=== PATIENT | female | born 1970 | race Caucasian/White ===

== ENCOUNTER 2016-07-02 13:50 | Emergency (ER) | payer OTHER ==
[2016-07-02] MEDS ORDERED: HYDROmorphone 1 MG/ML Syringe IVPUSH ONE (14:01)
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
--- NOTE | 2016-07-02 14:55 | CR ---
EXAMINATION: Lumbar spine HISTORY: Pain COMPARISON: None TECHNIQUE: AP and lateral views FINDINGS: The lumbar spinal alignment is normal. The vertebral body heights and disc spaces appear w ell-maintained. There is no fracture or acute osseous abnormality. Bone mineralization is normal. Th e SI joints are symmetric. Mild marginal osteophytes noted. IMPRESSION: No acute osseous abnormality identified.
--- NOTE | 2016-07-02 15:06 | CR ---
EXAMINATION: Pelvis HISTORY: Pain COMPARISON: None TECHNIQUE: AP view FINDINGS: There is no acute osseous abnormality, dislocation, or fracture. Bone mineralization and j oint spaces appear normal. The SI joints are symmetric. The hip joints are preserved. The iliopectin eal lines are intact. IMPRESSION: No acute osseous abnormality.
--- NOTE | 2016-07-02 15:07 | CR ---
EXAMINATION: Right knee HISTORY: Pain COMPARISON: None TECHNIQUE: 3 views FINDINGS/IMPRESSION: There is no acute osseous abnormality, dislocation, or fracture identified. Bon e mineralization and joint spaces appear normal. No soft tissue swelling or joint effusion.
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
[2016-07-02 19:58] VITALS: BP 129/85
== END 2016-07-02 16:40 | disposition home or self-care (01) ==
LOC: MW.ED 13:50
DX: S39.012A Strain of muscle, fascia and tendon of lower back, initial encounter (principal); T14.8 Other injury of unspecified body region; F17.210 Nicotine dependence, cigarettes, uncomplicated; Z98.890 Other specified postprocedural states; Z98.51 Tubal ligation status; V49.49XA Driver injured in collision with other motor vehicles in traffic accident, initial encounter
CPT/HCPCS: 71010; 72100; 72170; 73562; 96374; 99284; G0390; J1170; 99282

== ENCOUNTER 2016-10-30 12:55 | Emergency (ER) | payer OTHER ==
[2016-10-30 13:09] VITALS: BP 133/81
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
== END 2016-10-30 13:24 | disposition home or self-care (01) ==
LOC: MW.ED 12:55
DX: M54.5 Low back pain (principal); F31.9 Bipolar disorder, unspecified; F90.9 Attention-deficit hyperactivity disorder, unspecified type; F17.210 Nicotine dependence, cigarettes, uncomplicated; Z98.890 Other specified postprocedural states; Z98.51 Tubal ligation status
CPT/HCPCS: 99283

== ENCOUNTER 2017-04-09 20:56 | Emergency (ER) | payer OTHER ==
[2017-04-09] MEDS ORDERED: Sodium Chloride 0.9% 1,000 ML IV ONE (21:20)
[2017-04-09] MEDS ORDERED: Ondansetron 4 MG/2 ML SDV IVPUSH ONE (21:20)
[2017-04-09] MEDS ORDERED: Morphine 2 MG/ML Syringe IVPUSH ONE (21:20)
[2017-04-09] MEDS ORDERED: Pantoprazole 40 MG Vial IVPUSH ONE (21:21)
[2017-04-09] MEDS ORDERED: Sodium Chloride 0.9% 2.5 ML Syringe FLUSH PRN (21:21)
[2017-04-09] MEDS ORDERED: Sodium Chloride 0.9% 10 ML Syringe FLUSH PRN (21:21)
--- NOTE | 2017-04-09 21:24 | EDM.PDOC ---
ED HPI GENERAL MEDICAL PROBLEM - General Chief Complaint: Abdominal Pain Stated Complaint: PT HAS STOMACH PAINS Time Seen by Provider: 04/09/17 21:13 - History of Present Illness INITIAL COMMENTS - FREE TEXT/NARRATIVE: HISTORY AND PHYSICAL: History of present illness: The patient is a 46-year-old female who presents with right upper abdominal pain that started approximately 2-1/2 hours ago after eating a salad with gorgonzola dressing. The patient says that she has had similar pain in the past in 2014 and 2015 and was evaluated in [place] with some GI studies and an ultrasound of her gallbladder. She was supposed have an endoscopy and her there evaluation of her gallbladder but a family situation mandated that she leave [place] and go to [place]. The pain went away and she did not further get the evaluation. She says she's been doing well and has not had the pain until tonight. She says she is nauseated but has not had vomiting and she has had several loose stools today which are dark in color but not black or bloody. The patient tried meloxicam at home as well as [id number] antacids and still has the discomfort. She has no flank pain no urinary complaints and says that she "cannot get ". Patient says she has not had any recent food intolerance. Patient has not had fevers chills or upper respiratory symptoms and has no chest pain or shortness of breath. The patient tells me that she did eat this food that set off her pain 2-1/2 hours ago but she also ate some crackers in the interim before coming here. Review of systems: As per history of present illness and below otherwise all systems reviewed and negative. Past medical history: As per history of present illness and as reviewed below otherwise noncontributory. Surgical history: As per history of present illness and as reviewed below otherwise noncontributory. Social history: No reported history of drug or alcohol abuse. Family history: As per history of present illness and as reviewed below otherwise noncontributory. Physical exam: Gen.: Well-developed well-nourished female who is nontoxic and vital signs are noted by me HEENT: Atraumatic, normocephalic, pupils reactive, negative for conjunctival pallor or scleral icterus, mucous membranes moist, throat clear, neck supple, nontender, trachea midline. Lungs: Clear to auscultation, breath sounds equal bilaterally, chest nontender. Heart: S1S2, regular, negative for clicks, rubs, or JVD. Abdomen: Soft, nondistended, bowel sounds are slightly hypoactive, there is tenderness in the right upper quadrant without rebound or guarding and the remainder the abdomen is nontender. Negative for masses or hepatosplenomegaly. Pelvis: Stable nontender. Genitourinary: Deferred. Rectal: Normal tone and no masses or lesions are appreciated, light brown stool is in the vault which is Hemoccult negative Extremities: Atraumatic, negative for cords or calf pain. Neurovascular unremarkable. Neuro: Awake, alert, oriented. Cranial nerves II through XII unremarkable. Cerebellum unremarkable. Motor and sensory unremarkable throughout. Exam nonfocal. Diagnostics: CBC CMP amylase lipase UA CT scan of the abdomen and pelvis I discussed with the patient as she has eaten very recently that a gallbladder ultrasound would not yield much results so we would perform a CT Therapeutics: IV IV fluids and Protonix morphine Zofran I discussed with the patient and family at bedside all testing results including a negative CT scan for gallbladder or liver disease and the fecal loading of the proximal colon. I will recommend [id number] MiraLAX to help alleviate these symptoms and I will also give her some Bentyl at home for any cramping. I've also advised follow-up with one of our clinic providers as the symptoms may need more evaluation and testing for her gallbladder if they recur. Impression: Right upper abdominal pain acute on chronic, fecal loading of proximal colon Definitive disposition and diagnosis as appropriate pending reevaluation and review of above. RUQ Abdomen Pain Score (Numeric/FACES): 7 - Related Data Allergies Allergy/AdvReac Type Severity Reaction Status Date / Time No Known Allergies Allergy Verified 04/09/17 21:04 Home Meds: Home Meds Meloxicam 1 tab PO ASDIRECTED PRN 10/30/16 [History] Methylphenidate HCl 20 mg PO BID 10/30/16 [History] lamoTRIgine [Lamotrigine] 200 mg PO BEDTIME 10/30/16 [History] Albuterol [Ventolin HFA] 1 puff .XX ACLUNCH PRN 04/09/17 [History] Propranolol HCl 20 mg PO TID PRN 04/09/17 [History] rOPINIRole [Requip] 0.5 mg PO BEDTIME 04/09/17 [History] Past Medical History - Past Health History Medical/Surgical History: Denies Medical/Surgical History Musculoskeletal History: Reports: Other (See Below) Other Musculoskeletal History: knee pain Psychiatric History: Reports: ADHD, Bipolar, PTSD - Infectious Disease History Infectious Disease History: Reports: Chicken Pox - Past Surgical History HEENT Surgical History: Reports: Tonsillectomy Female Surgical History: Reports: Tubal Ligation Social & Family History - Family History Family Medical History: Noncontributory - Tobacco Use Smoking Status *Q: Current Every Day Smoker Years of Tobacco use: 15 Packs/Tins Daily: 0.5 - Caffeine Use Caffeine Use: Reports: Coffee - Recreational Drug Use Recreational Drug Use: No ED ROS GENERAL - Review of Systems Review Of Systems: ROS reveals no pertinent complaints other than HPI. ED EXAM, GENERAL - Physical Exam Exam: See Below (See dictation) Course - Vital Signs Last Recorded V/S: Last Vital Signs Temp 36.3 C 04/09/17 20:56 Pulse 70 04/09/17 20:56 Resp 18 04/09/17 20:56 BP 134/87 04/09/17 20:56 Pulse Ox 100 04/09/17 20:56 - Orders/Labs/Meds Orders: Active Orders 24 hr Category Date Time Status Abdomen Pelvis w Cont [CT] Stat Exams 04/09/17 21:20 Taken Sodium Chloride 0.9% [Saline Flush] Med 04/09/17 21:21 Active 10 ml FLUSH ASDIRECTED PRN Sodium Chloride 0.9% [Saline Flush] Med 04/09/17 21:21 Active 2.5 ml FLUSH ASDIRECTED PRN Saline Lock Insert [OM.PC] Stat Oth 04/09/17 21:20 Ordered Medication Orders Sodium Chloride (Saline Flush) 10 ml FLUSH ASDIRECTED PRN PRN Reason: Keep Vein Open Last Admin: 04/09/17 21:30 Dose: 10 ml Sodium Chloride (Saline Flush) 2.5 ml FLUSH ASDIRECTED PRN PRN Reason: Keep Vein Open Labs: Laboratory Tests 04/09/17 04/09/17 04/09/17 Range/Units 21:16 21:16 21:16 WBC 12.65 H (4.0-11.0) K/uL RBC 4.70 (4.30-5.90) M/uL Hgb 14.6 (12.0-16.0) g/dL Hct 41.8 (36.0-46.0) % MCV 88.9 (80.0-98.0) fL MCH 31.1 (27.0-32.0) pg MCHC 34.9 (31.0-37.0) g/dL RDW Std Deviation 46.2 (28.0-62.0) fl RDW Coeff of Diana 14 (11.0-15.0) % Plt Count 305 (150-400) K/uL MPV 10.20 (7.40-12.00) fL Neut % (Auto) 55.1 (48.0-80.0) % Lymph % (Auto) 38.1 (16.0-40.0) % Hodgeman % (Auto) 5.4 (0.0-15.0) % Eos % (Auto) 1.0 (0.0-7.0) % Baso % (Auto) 0.4 (0.0-1.5) % Neut # (Auto) 7.0 H (1.4-5.7) K/uL Lymph # (Auto) 4.8 H (0.6-2.4) K/uL Hodgeman # (Auto) 0.7 (0.0-0.8) K/uL Eos # (Auto) 0.1 (0.0-0.7) K/uL Baso # (Auto) 0.1 (0.0-0.1) K/uL Nucleated RBC % 0.0 /100WBC Nucleated RBCs # 0 K/uL Sodium 139 (136-146) mmol/L Potassium 3.8 (3.5-5.1) mmol/L Chloride 103 (98-110) mmol/L Carbon Dioxide 26 (21-31) mmol/L BUN 16 (6.0-23.0) mg/dL Creatinine 0.8 (0.6-1.5) mg/dL Est Cr Clr Drug Dosing 71.91 mL/min Estimated GFR (MDRD) > 60.0 ml/min Glucose 66 (60-110) mg/dL Calcium 10.9 H (8.8-10.8) mg/dL Total Bilirubin 0.3 (0.1-1.5) mg/dL AST 16 (5-40) IU/L ALT 19 (8-54) IU/L Alkaline Phosphatase 68 (40-150) Total Protein 7.2 (6.0-8.0) g/dL Albumin 4.3 (3.5-5.0) g/dL Globulin 2.9 (2.0-3.5) g/dL Albumin/Globulin Ratio 1.5 (1.3-2.8) Amylase 47 (10-90) U/L Lipase 68 (7-80) U/L Urine Color Urine Appearance Urine pH (5.0-8.0) Ur Specific [place] (1.001-1.035) Urine Protein (NEGATIVE) mg/dL Urine Glucose (UA) (NEGATIVE) mg/dL Urine Ketones (NEGATIVE) mg/dL Urine Occult Blood (NEGATIVE) Urine Nitrite (NEGATIVE) Urine Bilirubin (NEGATIVE) Urine Urobilinogen (<2.0) EU/dL Ur Leukocyte Esterase (NEGATIVE) Urine RBC (0-2/HPF) Urine WBC (0-5/HPF) Ur Epithelial Cells (NONE-FEW) Urine Bacteria (NEGATIVE) 04/09/17 Range/Units 21:20 WBC (4.0-11.0) K/uL RBC (4.30-5.90) M/uL Hgb (12.0-16.0) g/dL Hct (36.0-46.0) % MCV (80.0-98.0) fL MCH (27.0-32.0) pg MCHC (31.0-37.0) g/dL RDW Std Deviation (28.0-62.0) fl RDW Coeff of Diana (11.0-15.0) % Plt Count (150-400) K/uL MPV (7.40-12.00) fL Neut % (Auto) (48.0-80.0) % Lymph % (Auto) (16.0-40.0) % Hodgeman % (Auto) (0.0-15.0) % Eos % (Auto) (0.0-7.0) % Baso % (Auto) (0.0-1.5) % Neut # (Auto) (1.4-5.7) K/uL Lymph # (Auto) (0.6-2.4) K/uL Hodgeman # (Auto) (0.0-0.8) K/uL Eos # (Auto) (0.0-0.7) K/uL Baso # (Auto) (0.0-0.1) K/uL Nucleated RBC % /100WBC Nucleated RBCs # K/uL Sodium (136-146) mmol/L Potassium (3.5-5.1) mmol/L Chloride (98-110) mmol/L Carbon Dioxide (21-31) mmol/L BUN (6.0-23.0) mg/dL Creatinine (0.6-1.5) mg/dL Est Cr Clr Drug Dosing mL/min Estimated GFR (MDRD) ml/min Glucose (60-110) mg/dL Calcium (8.8-10.8) mg/dL Total Bilirubin (0.1-1.5) mg/dL AST (5-40) IU/L ALT (8-54) IU/L Alkaline Phosphatase (40-150) Total Protein (6.0-8.0) g/dL Albumin (3.5-5.0) g/dL Globulin (2.0-3.5) g/dL Albumin/Globulin Ratio (1.3-2.8) Amylase (10-90) U/L Lipase (7-80) U/L Urine Color YELLOW Urine Appearance CLEAR Urine pH 6.5 (5.0-8.0) Ur Specific [place] 1.010 (1.001-1.035) Urine Protein NEGATIVE (NEGATIVE) mg/dL Urine Glucose (UA) NEGATIVE (NEGATIVE) mg/dL Urine Ketones NEGATIVE (NEGATIVE) mg/dL Urine Occult Blood SMALL H (NEGATIVE) Urine Nitrite NEGATIVE (NEGATIVE) Urine Bilirubin NEGATIVE (NEGATIVE) Urine Urobilinogen 0.2 (<2.0) EU/dL Ur Leukocyte Esterase NEGATIVE (NEGATIVE) Urine RBC 2-4 (0-2/HPF) Urine WBC 0-1 (0-5/HPF) Ur Epithelial Cells OCCASIONAL (NONE-FEW) Urine Bacteria FEW (NEGATIVE) Meds: Medications Generic Name Dose Route Start Last Admin Trade Name Freq PRN Reason Stop Dose Admin Sodium Chloride 10 ml 04/09/17 21:21 04/09/17 21:30 Saline Flush FLUSH 10 ml ASDIRECTED PRN Administration Keep Vein Open Sodium Chloride 2.5 ml 04/09/17 21:21 Saline Flush FLUSH ASDIRECTED PRN Keep Vein Open Discontinued Medications Generic Name Dose Route Start Last Admin Trade Name Demar PRN Reason Stop Dose Admin Sodium Chloride 1,000 mls @ 999 mls/hr 04/09/17 21:20 04/09/17 21:34 Normal Saline IV 04/09/17 22:20 999 mls/hr STAT ONE Administration Morphine Sulfate 4 mg 04/09/17 21:20 04/09/17 21:43 Morphine IVPUSH 04/09/17 21:21 4 mg ONETIME ONE Administration Ondansetron HCl 4 mg 04/09/17 21:20 04/09/17 21:39 Zofran IVPUSH 04/09/17 21:21 4 mg ONETIME ONE Administration Pantoprazole Sodium 40 mg 04/09/17 21:21 04/09/17 21:41 Protonix Iv IVPUSH 04/09/17 21:22 40 mg NOW ONE Administration Departure - Departure Time of Disposition: 23:00 Disposition: Home, Self-Care 01 Condition: Good Clinical Impression: Abdominal pain Qualifiers: Abdominal location: right upper quadrant Qualified Code(s): R10.11 - Right upper quadrant pain Constipation Qualifiers: Constipation type: unspecified constipation type Qualified Code(s): K59.00 - Constipation, unspecified - Discharge Information Referrals: PCP,None [Primary Care Provider] - Forms: ED Department Discharge Additional Instructions: The following information is given to patients seen in the emergency department who are being discharged to home. This information is to outline your options for follow-up care. We provide all patients seen in our emergency department with a follow-up referral. The need for follow-up, as well as the timing and circumstances, are variable depending upon the specifics of your emergency department visit. If you don't have a primary care physician on staff, we will provide you with a referral. We always advise you to contact your personal physician following an emergency department visit to inform them of the circumstance of the visit and for follow-up with them and/or the need for any referrals to a consulting specialist. The emergency department will also refer you to a specialist when appropriate. This referral assures that you have the opportunity for followup care with a specialist. All of these measure are taken in an effort to provide you with optimal care, which includes your followup. Under all circumstances we always encourage you to contact your private physician who remains a resource for coordinating your care. When calling for followup care, please make the office aware that this follow-up is from your recent emergency room visit. If for any reason you are refused follow-up, please contact the [facility] emergency department at and ask to speak to the emergency department charge nurse. [facility] Primary care- [place] [address] Please push hydration and increase fiber in her diet and avoid fatty foods fast foods and junk foods. Please call and follow-up with one of our clinic providers for further care and evaluation as we discussed. These start and take [id number] MiraLAX once a day for the next 5 days just to assist in restarting your: And use Bentyl you have been prescribed to be a Insty Meds as needed for cramping pain. Return to ER as needed as discussed - My Orders Last 24 Hours: My Active Orders 04/09/17 21:20 Abdomen Pelvis w Cont [CT] Stat Saline Lock Insert [OM.PC] Stat 04/09/17 21:21 Sodium Chloride 0.9% [Saline Flush] 10 ml FLUSH ASDIRECTED PRN Sodium Chloride 0.9% [Saline Flush] 2.5 ml FLUSH ASDIRECTED PRN - Assessment/Plan Last 24 Hours: My Active Orders 04/09/17 21:20 Abdomen Pelvis w Cont [CT] Stat Saline Lock Insert [OM.PC] Stat 04/09/17 21:21 Sodium Chloride 0.9% [Saline Flush] 10 ml FLUSH ASDIRECTED PRN Sodium Chloride 0.9% [Saline Flush] 2.5 ml FLUSH ASDIRECTED PRN
[2017-04-09 22:02] LABS: CHLORIDE,CL 103 mmol/L (98-110); SODIUM,NA 139 mmol/L (136-146)
[2017-04-10 00:49] VITALS: BP 127/81
--- NOTE | 2017-04-10 09:45 | CT ---
EXAM DATE: 04/09/17 PATIENT'S AGE: 46 Patient: ANA LOUIS Facility: [place], [place] Site . Site : 1970 Study: CT Abdomen/Pelvis [id number] 10:36:17 PM Ordering Physician: Na Rose Final Report: INDICATION: Right lower quadrant pain. TECHNIQUE: CT abdomen and pelvis acquired with 100 mL of IV contrast. COMPARISON: None. FINDINGS: Lower chest: Unremarkable. Liver: Unremarkable. Spleen: Unremarkable. Pancreas: Unremarkable. Gallbladder and bile ducts: Unremarkable. Kidneys: Unremarkable. Adrenal glands: Unremarkable. GI tract: No evidence of obstruction or acute appendicitis. No inflammatory changes elsewhere. Fecal loading of the proximal colon. No free air or free fluid. Vascular structures: Unremarkable. Lymph nodes: Unremarkable. Pelvic Organs: Unremarkable. Bones: No acute abnormality. IMPRESSION: No acute intra-abdominal or pelvic abnormality. Dictated by Randolph Aguilar MD @ 04/09/2017 10:52:46 PM Dictated by: Randolph Aguilar MD @ 04/09/2017 22:52:54 (Electronic Signature) Report Signed by Proxy. [facility]
== END 2017-04-09 23:17 | disposition home or self-care (01) ==
LOC: MW.ED 20:56
DX: K59.00 Constipation, unspecified (principal); F17.210 Nicotine dependence, cigarettes, uncomplicated
CPT/HCPCS: 36415; 74177; 80053; 81001; 82150; 83690; 85025; 96361; 96374; 96375; 99284; C9113; J2270; J2405; J7040

== ENCOUNTER 2017-05-27 11:13 | Emergency (ER) | payer OTHER, MEDICARE ==
[2017-05-27] MEDS ORDERED: Ketorolac 60 MG/2 ML SDV IM ONE (11:52)
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
[2017-05-27 13:51] VITALS: BP 127/83
== END 2017-05-27 13:40 | disposition home or self-care (01) ==
LOC: MW.ED 11:13
DX: S30.0XXA Contusion of lower back and pelvis, initial encounter (principal); M25.551 Pain in right hip; M25.552 Pain in left hip; R60.9 Edema, unspecified; F17.210 Nicotine dependence, cigarettes, uncomplicated; Y09 Assault by unspecified means; Y99.1 Military activity
CPT/HCPCS: 72070; 73521; 96372; 99284; J1885; 99283

== ENCOUNTER 2017-10-31 23:37 | Emergency (ER) | payer OTHER ==
[2017-11-01] MEDS ORDERED: HYDROmorphone 2 MG/ML SDV IVPUSH ONE (00:01)
[2017-11-01] MEDS ORDERED: Sodium Chloride 0.9% 2.5 ML Syringe FLUSH PRN ×2 (00:01)
[2017-11-01] MEDS ORDERED: Ondansetron 4 MG/2 ML SDV IVPUSH ONE ×2 (00:01→01:17)
[2017-11-01] MEDS ORDERED: Sodium Chloride 0.9% 1,000 ML IV ONE (00:01)
[2017-11-01] MEDS ORDERED: Sodium Chloride 0.9% 10 ML Syringe FLUSH PRN (00:01)
[2017-11-01] MEDS ORDERED: HYDROmorphone 1 MG/ML Syringe IVPUSH ONE (00:29)
[2017-11-01] MEDS ORDERED: Metoclopramide 10 MG/2 ML SDV IV ONE (01:51)
[2017-11-01 02:04] VITALS: BP 110/62
--- NOTE | 2017-11-01 02:26 | EDM.PDOC ---
ED HPI GENERAL MEDICAL PROBLEM - General Chief Complaint: Abdominal Pain Stated Complaint: GALLBLADDER Time Seen by Provider: 10/31/17 23:45 Source of Information: Reports: Patient History Limitations: Reports: No Limitations - History of Present Illness INITIAL COMMENTS - FREE TEXT/NARRATIVE: HISTORY AND PHYSICAL: History of present illness: 39-year-old female presenting to the emergency department with chief complaint of right upper quadrant pain x 2 days. Patient states for the past 2 days she has had worsening right upper quadrant pain. She states it is constant and sharp. She has been having problems with this for the past 5 years. States that today it just became more severe and she could not stand the pain. She has had gallbladder issues and it has been worked up by [facility] Torres. Patient had a HIDA scan on 09/20/17 and has the documents that show biliary dyskinesis with a 21% EF. Patient states that they're planning to have her follow-up and have surgery done in [place] cholecystectomy. [facility] has not been able to see a surgeon here. Today she tried using a heating pad as well as ibuprofen but her symptoms only worsened. She has had some associated nausea. She denies any fever, chills, diarrhea, bloody stool, dark tarry stools, or other signs of systemic infection. Patient has no medical allergies. On exam patient is a exquisitely tender in the right upper quadrant. CBC, CMP, lipase, UA, hCG are all unremarkable. Right upper quadrant ultrasound was unremarkable in appearance. Sonographic Cole sign was reported. CT abdomen and pelvis: Did show mild central intrahepatic dilatation without significant intrahepatic biliary dilatation. There was also some small pericholecystic fluid. This could be suggestive of early cholecystitis. As above patient was afebrile with no leukocytosis and right upper quadrant ultrasound was unremarkable. Secondary to all the above I did instruct the patient to follow-up with our general surgery tomorrow and gave her information for this. She most likely does need a cholecystectomy and secondary to the findings of possible early cholecystitis I did go ahead and treat her with Cipro and Flagyl. All the above was explained to patient and she was given information for our general surgery and was instructed to return the emergency department if she had any new or worsening symptoms. Review of systems: As per history of present illness and below otherwise all systems reviewed and negative. Past medical history: As per history of present illness and as reviewed below otherwise noncontributory. Surgical history: As per history of present illness and as reviewed below otherwise noncontributory. Social history: No reported history of drug or alcohol abuse. Family history: As per history of present illness and as reviewed below otherwise noncontributory. Physical exam: HEENT: Atraumatic, normocephalic, pupils reactive, negative for conjunctival pallor or scleral icterus, mucous membranes moist, throat clear, neck supple, nontender, trachea midline. Lungs: Clear to auscultation, breath sounds equal bilaterally, chest nontender. Heart: S1S2, regular, negative for clicks, rubs, or JVD. Abdomen: Soft, nondistended, RUQ tenderness. Negative for masses or hepatosplenomegaly. Negative for costovertebral tenderness. Pelvis: Stable nontender. Genitourinary: Deferred. Rectal: Deferred. Extremities: Atraumatic, negative for cords or calf pain. Neurovascular unremarkable. Neuro: Awake, alert, oriented. Cranial nerves II through XII unremarkable. Cerebellum unremarkable. Motor and sensory unremarkable throughout. Exam nonfocal. Diagnostics: CBC, CMP, UA/UC, right upper water ultrasound, CT abdomen and pelvis Therapeutics: 1 L normal saline 1, Dilaudid 1 mg IV 2, Zofran 8 mg IV 1, Reglan 10 mg IV 1 , Cipro 500 mg by mouth twice a day 10 days, Flagyl 500 mg by mouth every 8 hours 10 days Impression: Right upper quadrant pain Biliary colic Biliary dyskinesis Nausea without vomiting Plan: Please see above H&P for full plan. Patient was discharged in good condition please see above for further explanation. She was also given a prescription for Cipro, Flagyl, Excello 5 #20, and Zofran Definitive disposition and diagnosis as appropriate pending reevaluation and review of above. abd Pain Score (Numeric/FACES): 1 - Related Data Allergies Allergy/AdvReac Type Severity Reaction Status Date / Time No Known Allergies Allergy Verified 10/31/17 23:57 Home Meds: Home Meds Methylphenidate HCl 20 mg PO BID 10/30/16 [History] lamoTRIgine [Lamotrigine] 100 mg PO BEDTIME 10/30/16 [History] Albuterol [Ventolin HFA] 1 puff .XX ACLUNCH PRN 04/09/17 [History] Propranolol HCl 20 mg PO BID PRN 04/09/17 [History] rOPINIRole [Requip] 5 tab PO BEDTIME 04/09/17 [History] Meloxicam 15 mg PO DAILY 11/01/17 [History] buPROPion [Wellbutrin SR] 150 mg PO DAILY 11/01/17 [History] traZODone HCl [Trazodone HCl] 100 mg PO DAILY 11/01/17 [History] Past Medical History - Past Health History Medical/Surgical History: Denies Medical/Surgical History Respiratory History: Reports: Other (See Below) Other Respiratory History: pleurisy Gastrointestinal History: Reports: Cholelithiasis Genitourinary History: Reports: UTI, Recurrent 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: Musculoskeletal History: Reports: Other (See Below) Other Musculoskeletal History: knee pain, hip pain Neurological History: Reports: Headaches, Chronic Psychiatric History: Reports: ADHD, Anxiety, Bipolar, PTSD - Infectious Disease History Infectious Disease History: Reports: Chicken Pox - Past Surgical History HEENT Surgical History: Reports: Tonsillectomy Female Surgical History: Reports: Tubal Ligation Social & Family History - Family History Family Medical History: Noncontributory - Tobacco Use Smoking Status *Q: Current Every Day Smoker Years of Tobacco use: 20 Packs/Tins Daily: 0.6 Second Hand Smoke Exposure: Yes - Caffeine Use Caffeine Use: Reports: Coffee - Recreational Drug Use Recreational Drug Use: No ED ROS GENERAL - Review of Systems Review Of Systems: ROS reveals no pertinent complaints other than HPI. ED EXAM, GENERAL - Physical Exam Exam: See Below Course - Vital Signs Last Recorded V/S: Last Vital Signs Temp 97 F 11/01/17 02:04 Pulse 63 11/01/17 02:04 Resp 18 11/01/17 02:04 BP 110/62 11/01/17 02:04 Pulse Ox 98 11/01/17 02:04 - Orders/Labs/Meds Orders: Active Orders 24 hr Category Date Time Status Abdomen Ltd [US] Stat Exams 11/01/17 00:01 Taken Abdomen Pelvis w Cont [CT] Stat Exams 11/01/17 00:59 Taken CULTURE URINE [RM] Stat Lab 11/01/17 02:00 Ordered HCG QUALITATIVE,URINE [URCHEM] Stat Lab 11/01/17 02:00 Ordered UA W/MICROSCOPIC [URIN] Stat Lab 11/01/17 02:00 Ordered Sodium Chloride 0.9% [Saline Flush] Med 11/01/17 00:01 Active 10 ml FLUSH ASDIRECTED PRN Sodium Chloride 0.9% [Saline Flush] Med 11/01/17 00:01 Active 2.5 ml FLUSH ASDIRECTED PRN Sodium Chloride 0.9% [Saline Flush] Med 11/01/17 00:01 Active 2.5 ml FLUSH ASDIRECTED PRN Saline Lock Insert [OM.PC] Stat Oth 11/01/17 00:01 Ordered Medication Orders Sodium Chloride (Saline Flush) 2.5 ml FLUSH ASDIRECTED PRN PRN Reason: Keep Vein Open Sodium Chloride (Saline Flush) 10 ml FLUSH ASDIRECTED PRN PRN Reason: Keep Vein Open Sodium Chloride (Saline Flush) 2.5 ml FLUSH ASDIRECTED PRN PRN Reason: Keep Vein Open Labs: Laboratory Tests 11/01/17 11/01/17 11/01/17 Range/Units 00:05 00:05 02:00 WBC 10.26 (4.0-11.0) K/uL RBC 4.30 (4.30-5.90) M/uL Hgb 13.3 (12.0-16.0) g/dL Hct 38.1 (36.0-46.0) % MCV 88.6 (80.0-98.0) fL MCH 30.9 (27.0-32.0) pg MCHC 34.9 (31.0-37.0) g/dL RDW Std Deviation 46.0 (28.0-62.0) fl RDW Coeff of Diana 14 (11.0-15.0) % Plt Count 270 (150-400) K/uL MPV 10.40 (7.40-12.00) fL Neut % (Auto) 40.2 L (48.0-80.0) % Lymph % (Auto) 47.8 H (16.0-40.0) % [place] % (Auto) 8.2 (0.0-15.0) % Eos % (Auto) 3.5 (0.0-7.0) % Baso % (Auto) 0.3 (0.0-1.5) % Neut # (Auto) 4.1 (1.4-5.7) K/uL Lymph # (Auto) 4.9 H (0.6-2.4) K/uL [place] # (Auto) 0.8 (0.0-0.8) K/uL Eos # (Auto) 0.4 (0.0-0.7) K/uL Baso # (Auto) 0.0 (0.0-0.1) K/uL Nucleated RBC % 0.0 /100WBC Nucleated RBCs # 0 K/uL Sodium 138 (136-145) mmol/L Potassium 4.0 (3.5-5.1) mmol/L Chloride 106 (98-107) mmol/L Carbon Dioxide 24.2 (21.0-32.0) mmol/L BUN 26 H (7.0-18.0) mg/dL Creatinine 1.1 H (0.6-1.0) mg/dL Est Cr Clr Drug Dosing 51.74 mL/min Estimated GFR (MDRD) 53.0 ml/min Glucose 91 (74-106) mg/dL Calcium 8.9 (8.5-10.1) mg/dL Total Bilirubin 0.3 (0.2-1.0) mg/dL AST 12 L (15-37) IU/L ALT 17 (14-63) IU/L Alkaline Phosphatase 64 (46-116) U/L Total Protein 6.5 (6.4-8.2) g/dL Albumin 3.4 (3.4-5.0) g/dL Globulin 3.1 (2.0-3.5) g/dL Albumin/Globulin Ratio 1.1 L (1.3-2.8) Lipase 347 (73-393) U/L Urine Color YELLOW Urine Appearance CLEAR Urine pH 7.0 (5.0-8.0) Ur Specific [place] 1.010 (1.001-1.035) Urine Protein NEGATIVE (NEGATIVE) mg/dL Urine Glucose (UA) NEGATIVE (NEGATIVE) mg/dL Urine Ketones NEGATIVE (NEGATIVE) mg/dL Urine Occult Blood SMALL H (NEGATIVE) Urine Nitrite NEGATIVE (NEGATIVE) Urine Bilirubin NEGATIVE (NEGATIVE) Urine Urobilinogen 0.2 (<2.0) EU/dL Ur Leukocyte Esterase NEGATIVE (NEGATIVE) Urine RBC 2-4 (0-2/HPF) Urine WBC 0-1 (0-5/HPF) Ur Epithelial Cells OCCASIONAL (NONE-FEW) Amorphous Sediment FEW (NEGATIVE) Urine Bacteria FEW (NEGATIVE) Urine HCG, Qual (NEGATIVE) 11/01/17 Range/Units 02:00 WBC (4.0-11.0) K/uL RBC (4.30-5.90) M/uL Hgb (12.0-16.0) g/dL Hct (36.0-46.0) % MCV (80.0-98.0) fL MCH (27.0-32.0) pg MCHC (31.0-37.0) g/dL RDW Std Deviation (28.0-62.0) fl RDW Coeff of Diana (11.0-15.0) % Plt Count (150-400) K/uL MPV (7.40-12.00) fL Neut % (Auto) (48.0-80.0) % Lymph % (Auto) (16.0-40.0) % [place] % (Auto) (0.0-15.0) % Eos % (Auto) (0.0-7.0) % Baso % (Auto) (0.0-1.5) % Neut # (Auto) (1.4-5.7) K/uL Lymph # (Auto) (0.6-2.4) K/uL [place] # (Auto) (0.0-0.8) K/uL Eos # (Auto) (0.0-0.7) K/uL Baso # (Auto) (0.0-0.1) K/uL Nucleated RBC % /100WBC Nucleated RBCs # K/uL Sodium (136-145) mmol/L Potassium (3.5-5.1) mmol/L Chloride (98-107) mmol/L Carbon Dioxide (21.0-32.0) mmol/L BUN (7.0-18.0) mg/dL Creatinine (0.6-1.0) mg/dL Est Cr Clr Drug Dosing mL/min Estimated GFR (MDRD) ml/min Glucose (74-106) mg/dL Calcium (8.5-10.1) mg/dL Total Bilirubin (0.2-1.0) mg/dL AST (15-37) IU/L ALT (14-63) IU/L Alkaline Phosphatase (46-116) U/L Total Protein (6.4-8.2) g/dL Albumin (3.4-5.0) g/dL Globulin (2.0-3.5) g/dL Albumin/Globulin Ratio (1.3-2.8) Lipase (73-393) U/L Urine Color Urine Appearance Urine pH (5.0-8.0) Ur Specific [place] (1.001-1.035) Urine Protein (NEGATIVE) mg/dL Urine Glucose (UA) (NEGATIVE) mg/dL Urine Ketones (NEGATIVE) mg/dL Urine Occult Blood (NEGATIVE) Urine Nitrite (NEGATIVE) Urine Bilirubin (NEGATIVE) Urine Urobilinogen (<2.0) EU/dL Ur Leukocyte Esterase (NEGATIVE) Urine RBC (0-2/HPF) Urine WBC (0-5/HPF) Ur Epithelial Cells (NONE-FEW) Amorphous Sediment (NEGATIVE) Urine Bacteria (NEGATIVE) Urine HCG, Qual NEGATIVE (NEGATIVE) Meds: Medications Generic Name Dose Route Start Last Admin Trade Name Demar PRN Reason Stop Dose Admin Sodium Chloride 2.5 ml 11/01/17 00:01 Saline Flush FLUSH ASDIRECTED PRN Keep Vein Open Sodium Chloride 10 ml 11/01/17 00:01 Saline Flush FLUSH ASDIRECTED PRN Keep Vein Open Sodium Chloride 2.5 ml 11/01/17 00:01 Saline Flush FLUSH ASDIRECTED PRN Keep Vein Open Discontinued Medications Generic Name Dose Route Start Last Admin Trade Name Demar PRN Reason Stop Dose Admin Hydromorphone HCl 1 mg 11/01/17 00:01 11/01/17 00:17 Dilaudid IVPUSH 11/01/17 00:02 1 mg ONETIME ONE Administration Hydromorphone HCl 1 mg 11/01/17 00:29 11/01/17 00:45 Dilaudid IVPUSH 11/01/17 00:30 1 mg ONETIME ONE Administration Sodium Chloride 1,000 mls @ 999 mls/hr 11/01/17 00:01 11/01/17 00:17 Normal Saline IV 11/01/17 01:01 999 mls/hr BOLUS ONE Administration Metoclopramide HCl 10 mg 11/01/17 01:51 11/01/17 02:05 Reglan IV 11/01/17 01:52 10 mg ONETIME ONE Administration Ondansetron HCl 4 mg 11/01/17 00:01 11/01/17 00:17 Zofran IVPUSH 11/01/17 00:02 4 mg ONETIME ONE Administration Ondansetron HCl 8 mg 11/01/17 01:17 11/01/17 01:21 Zofran IVPUSH 11/01/17 01:18 8 mg ONETIME ONE Administration Departure - Departure Time of Disposition: 02:58 Disposition: DC/Tfer W/I Hosp To Swing 61 Condition: Good Clinical Impression: Biliary colic, Biliary dyskinesia, Right upper quadrant pain, Nausea without vomiting - Discharge Information Referrals: PCP,None [Primary Care Provider] - Forms: ED Department Discharge Additional Instructions: My general discharge The following information is given to patients seen in the emergency department who are being discharged to home. This information is to outline your options for follow-up care. We provide all patients seen in our emergency department with a follow-up referral. The need for follow-up, as well as the timing and circumstances, are variable depending upon the specifics of your emergency department visit. If you don't have a primary care physician on staff, we will provide you with a referral. We always advise you to contact your personal physician following an emergency department visit to inform them of the circumstance of the visit and for follow-up with them and/or the need for any referrals to a consulting specialist. The emergency department will also refer you to a specialist when appropriate. This referral assures that you have the opportunity for follow-up care with a specialist. All of these measure are taken in an effort to provide you with optimal care, which includes your follow-up. Under all circumstances we always encourage you to contact your private physician who remains a resource for coordinating your care. When calling for follow-up care, please make the office aware that this follow-up is from your recent emergency room visit. If for any reason you are refused follow-up, please contact the [facility] Emergency Department at and asked to speak to the emergency department charge nurse. My General Surgery [facility] Specialty Care - General Surgery Professional Building [address] [place] [address], [address] [place] [address] Please call and talk with general surgery here in [place] as we discussed for follow-up. Take medication as prescribed. Return to emergency department if any new or worsening symptoms. - My Orders Last 24 Hours: My Active Orders 11/01/17 00:01 Abdomen Ltd [US] Stat Sodium Chloride 0.9% [Saline Flush] 10 ml FLUSH ASDIRECTED PRN Sodium Chloride 0.9% [Saline Flush] 2.5 ml FLUSH ASDIRECTED PRN Sodium Chloride 0.9% [Saline Flush] 2.5 ml FLUSH ASDIRECTED PRN Saline Lock Insert [OM.PC] Stat 11/01/17 00:59 Abdomen Pelvis w Cont [CT] Stat 11/01/17 02:00 CULTURE URINE [RM] Stat HCG QUALITATIVE,URINE [URCHEM] Stat UA W/MICROSCOPIC [URIN] Stat - Assessment/Plan Last 24 Hours: My Active Orders 11/01/17 00:01 Abdomen Ltd [US] Stat Sodium Chloride 0.9% [Saline Flush] 10 ml FLUSH ASDIRECTED PRN Sodium Chloride 0.9% [Saline Flush] 2.5 ml FLUSH ASDIRECTED PRN Sodium Chloride 0.9% [Saline Flush] 2.5 ml FLUSH ASDIRECTED PRN Saline Lock Insert [OM.PC] Stat 11/01/17 00:59 Abdomen Pelvis w Cont [CT] Stat 11/01/17 02:00 CULTURE URINE [RM] Stat HCG QUALITATIVE,URINE [URCHEM] Stat UA W/MICROSCOPIC [URIN] Stat
--- NOTE | 2017-11-01 19:44 | US ---
EXAM DATE: 10/31/17 PATIENT'S AGE: 47 Patient: ANA LOUIS Facility: [place], [place] Site . Site : 1970 Study: US Abdomen [id number]/[id number] 12:38:14 AM Ordering Physician: Artie Wyatt Final Report: INDICATION: Right upper quadrant pain TECHNIQUE: Ultrasound abdomen limited. Sonographic images of the right upper quadrant were obtained using groves-scale and color Doppler images. COMPARISON: None FINDINGS: Liver: The liver parenchyma is normal in echotexture. Gallbladder: No gallstones or sludge seen in the lumen. The gallbladder wall is normal in appearance. No pericholecystic fluid is present. A sonographic Cole sign was reported. Common bile duct: 2 mm. No intrahepatic biliary ductal dilatation seen. Pancreas: The visualized portions of the pancreatic head and body are normal in appearance. Right Kidney: 10.1 cm. No hydronephrosis or ureterectasis is seen. Vascular: Proximal abdominal aorta and IVC are normal in caliber. The visualized portal vein is patent with normal anterograde flow. IMPRESSION: 1. The right upper quadrant is unremarkable in appearance. A sonographic Cole sign was reported. Dictated by Josh Ludwig MD @ 11/01/2017 12:40:04 AM Dictated by: Josh Ludwig MD @ 11/01/2017 00:40:23 (Electronic Signature) Report Signed by Proxy. [facility]
--- NOTE | 2017-11-05 08:49 | CT ---
EXAM DATE: 10/31/17 PATIENT'S AGE: 47 Patient: ANA LOUIS Facility: [facility] Site . Site : 1970 Study: CT-Abdomen [id number]/31/[id number] 1:47:32 AM Ordering Physician: Artie Wyatt Final Report: INDICATION: Abdominal pain. TECHNIQUE: Contiguous axial images were acquired through the abdomen and pelvis after the intravenous administration of contrast. Sagittal and coronal reconstructions. COMPARISON: CT from 04/09/2017. Ultrasound from 11/01/2017. FINDINGS: Lower chest: Normal heart size. No pericardial effusion. Mild bibasilar atelectasis. Liver: No appreciable intrahepatic lesions. Gallbladder and bile ducts: No calcified stones are seen within the gallbladder. No significant gallbladder wall thickening or appreciable pericholecystic edema. No significantly dilated bile ducts. Spleen: Normal size. Pancreas: No appreciable pancreatic mass or evidence of pancreatitis. Adrenal glands: Unremarkable. Kidneys: Normal size and enhancement. No suspicious renal lesions. No hydronephrosis. Vasculature: Normal caliber abdominal aorta. GI tract: No abnormally dilated bowel to suggest obstruction. No appreciable abnormal bowel wall thickening. Normal appendix is identified. Free air: None. Free fluid: None. Lymphadenopathy: None. Pelvic contents: Unremarkable appearance of the urinary bladder. Uterus is present. There is a 2 cm left ovarian cyst which is suboptimally evaluated but likely benign. Bones: No acute abnormality or suspicious bony lesions. Bone island is again seen in the right side of the sacrum. IMPRESSION: 1. No acute abnormality is identified to account for the patient`s abdominal pain. 2. Incidental findings as noted. Please note that all CT scans at this facility use dose modulation, iterative reconstruction, and/or weight-based dosing when appropriate to reduce radiation dose to as low as reasonably achievable. Dictated by Lenny Bolden MD @ Nov 05 2017 6:19AM Signed by: Lenny Bolden MD @11/05/2017 6:33:48 AM (Electronic Signature) Report Signed by Proxy. [facility]
== END 2017-11-01 03:15 | disposition home or self-care (01) ==
LOC: MW.ED 23:37
DX: K80.50 Calculus of bile duct without cholangitis or cholecystitis without obstruction (principal); K82.8 Other specified diseases of gallbladder; F17.210 Nicotine dependence, cigarettes, uncomplicated; F31.9 Bipolar disorder, unspecified; F32.9 Major depressive disorder, single episode, unspecified; Z79.899 Other long term (current) drug therapy
CPT/HCPCS: 36415; 74177; 76705; 80053; 81001; 81025; 83690; 85025; 87086; 96361; 96374; 96375; 96376; 99284; J1170; J2405; J2765; J7040

== ENCOUNTER 2018-06-06 14:41 | Emergency (ER) | payer OTHER, MEDICARE, MEDICAID ==
--- NOTE | 2018-06-06 15:32 | EDM.PDOC ---
ED HPI GENERAL MEDICAL PROBLEM - General Chief Complaint: General Stated Complaint: BIT BY TICK,FLU LIKE SYMPTOMS Time Seen by Provider: 06/06/18 14:45 Source of Information: Reports: Patient History Limitations: Reports: No Limitations - History of Present Illness INITIAL COMMENTS - FREE TEXT/NARRATIVE: HISTORY AND PHYSICAL: History of present illness: Patient is a 47-year-old female presents to the ED today with concern for flulike symptoms 2 days. Patient states she has a headache and body aches. 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 Patient states that today her mother noticed a tick on her neck. Patient does have the tick with her ED. Patient states her concern is for Lyme's disease as she is unsure how long the tick as been on her neck. Patient denies rash or recent travel and states the tick would be from [place]. Patient denies fever, chills, chest pain, shortness of breath, or cough. Denies neck stiff ness, change in vision, syncope, or near syncope. Denies nausea, vomiting, abdominal pain, diarrhea, constipation, or dysuria. Has not noted any blood in urine or stool. Patient has been eating and drinking appropriately. Review of systems: As per history of present illness and below otherwise all systems reviewed and negative. Past medical history: As per history of present illness and as reviewed below otherwise noncontributory. Surgical history: As per history of present illness and as reviewed below otherwise noncontributory. Social history: See social history for further information Family history: As per history of present illness and as reviewed below otherwise noncontributory. Physical exam: General: Patient is alert, oriented, and in no acute distress. She is tired appearing but is sitting comfortably on exam table. HEENT: Atraumatic, normocephalic, pupils equal and reactive bilaterally, negative for conjunctival pallor or scleral icterus, mucous membranes moist, TMs normal bilaterally, throat clear, neck supple, nontender, trachea midline. No drooling or trismus noted. No meningeal signs. No hot potato voice noted. Lungs: Clear to auscultation, breath sounds equal bilaterally, chest nontender. Heart: S1S2, regular rate and rhythm without overt murmur Abdomen: Soft, nondistended, nontender. Negative for masses or hepatosplenomegaly. Negative for costovertebral tenderness. Pelvis: Stable nontender. Genitourinary: Deferred. Rectal: Deferred. Skin: Intact, warm, dry. No lesions or rashes noted. Extremities: Atraumatic, negative for cords or calf pain. Neurovascular unremarkable. Neuro: Awake, alert, oriented. Cranial nerves II through XII unremarkable. Cerebellum unremarkable. Motor and sensory unremarkable throughout. Exam nonfocal. Notes: I did call Lab and discussed testing for Lymes and [place] Spotted Fever. Due patient discovering tick today, lab work would not likely detect this early, however, offered testing today to patient. Patient declines Lymes and [place] Spotted Fever testing today and states she will follow up outpatient with this.Discussed the importance for follow-up with her primary care provider. Supportive care measures were reviewed and discussed. Voices understanding and is agreeable to plan of care. Denies any further questions or concerns at this time. Diagnostics: CBC, CMP, strep, influenza, UA Therapeutics: Saline. Toradol, promethazine Prescription: None Impression: Viral illness, unspecified Plan: 1. You can alternate ibuprofen and Tylenol as needed for pain and discomfort as directed. Encourage you to sleep 6-8 hours per night. 2. Follow-up with a primary care provider as discussed. 3. Return to the ED as needed and as discussed. Definitive disposition and diagnosis as appropriate pending reevaluation and review of above. headache Pain Score (Numeric/FACES): 7 - Related Data Allergies Allergy/AdvReac Type Severity Reaction Status Date / Time hydromorphone [From Dilaudid] Allergy Nausea and Verified 12/26/17 08:46 Vomiting ondansetron [From Zofran] Allergy Nausea and Verified 12/26/17 08:47 Vomiting Home Meds: Home Meds Methylphenidate HCl 20 mg PO BID 10/30/16 [History] Albuterol Sulfate [Proair Hfa] 1 - 2 tab PO ASDIRECTED PRN 12/23/17 [History] Ibuprofen 1 tab PO ASDIRECTED PRN 12/23/17 [History] Propranolol [Inderal] 0.5 tab PO BID 12/23/17 [History] Past Medical History - Past Health History Medical/Surgical History: Denies Medical/Surgical History HEENT History: Reports: Other (See Below) Other HEENT History: glasses for reading and driving Respiratory History: Reports: Other (See Below) Other Respiratory History: pleurisy rt lung Gastrointestinal History: Reports: Cholelithiasis Genitourinary History: Reports: None, UTI, Recurrent [employer] History: Reports: Musculoskeletal History: Reports: Back Pain, Chronic, Other (See Below) Other Musculoskeletal History: "slight" fx hip pain Neurological History: Reports: None Psychiatric History: Reports: ADHD, Anxiety, Bipolar, PTSD Endocrine/Metabolic History: Reports: None Hematologic History: Reports: None Immunologic History: Reports: None Oncologic (Cancer) History: Reports: Other (See Below) Other Oncologic History: abnormal pap Dermatologic History: Reports: None - Infectious Disease History Infectious Disease History: Reports: Chicken Pox - Past Surgical History Head Surgeries/Procedures: Reports: None HEENT Surgical History: Reports: Tonsillectomy Female Surgical History: Reports: Tubal Ligation Other Female Surgeries/Procedures: colposcopy for abnormal pap Social & Family History - Family History Family Medical History: Noncontributory - Tobacco Use Smoking Status *Q: Never Smoker - Caffeine Use Caffeine Use: Reports: Coffee - Recreational Drug Use Recreational Drug Use: No ED ROS GENERAL - Review of Systems Review Of Systems: ROS reveals no pertinent complaints other than HPI. ED EXAM, GENERAL - Physical Exam Exam: See Below (see dictation) Course - Vital Signs Last Recorded V/S: Last Vital Signs Temp 36.1 C 06/06/18 14:52 Pulse 80 06/06/18 14:52 Resp 16 06/06/18 14:52 BP 181/100 H 06/06/18 14:52 Pulse Ox 98 06/06/18 14:52 - Orders/Labs/Meds Orders: Active Orders 24 hr Category Date Time Status CULTURE STREP A CONFIRMATION [RM] Stat Lab 06/06/18 15:40 Results STREP SCRN A RAPID W CULT CONF [RM] Stat Lab 06/06/18 15:40 Results Sodium Chloride 0.9% [Normal Saline] 1,000 ml Med 06/06/18 16:27 Active IV STAT Medication Orders Sodium Chloride (Normal Saline) 1,000 mls @ 999 mls/hr IV STAT ONE Stop: 06/06/18 17:27 Last Admin: 06/06/18 17:15 Dose: 999 mls/hr Labs: Laboratory Tests 06/06/18 06/06/1806/06/19 Range/Units 15:50 16:26 16:26 WBC 7.83 (4.0-11.0) K/uL RBC 4.64 (4.30-5.90) M/uL Hgb 14.4 (12.0-16.0) g/dL Hct 40.9 (36.0-46.0) % MCV 88.1 (80.0-98.0) fL MCH 31.0 (27.0-32.0) pg MCHC 35.2 (31.0-37.0) g/dL RDW Std Deviation 42.5 (28.0-62.0) fl RDW Coeff of Diana 13 (11.0-15.0) % Plt Count 250 (150-400) K/uL MPV 10.50 (7.40-12.00) fL Neut % (Auto) 46.6 L (48.0-80.0) % Lymph % (Auto) 44.2 H (16.0-40.0) % [place] % (Auto) 7.8 (0.0-15.0) % Eos % (Auto) 0.9 (0.0-7.0) % Baso % (Auto) 0.5 (0.0-1.5) % Neut # (Auto) 3.7 (1.4-5.7) K/uL Lymph # (Auto) 3.5 H (0.6-2.4) K/uL [place] # (Auto) 0.6 (0.0-0.8) K/uL Eos # (Auto) 0.1 (0.0-0.7) K/uL Baso # (Auto) 0.0 (0.0-0.1) K/uL Nucleated RBC % 0.0 /100WBC Nucleated RBCs # 0 K/uL Sodium 142 (136-145) mmol/L Potassium 4.4 (3.5-5.1) mmol/L Chloride 107 (98-107) mmol/L Carbon Dioxide 24.2 (21.0-32.0) mmol/L BUN 15 (7.0-18.0) mg/dL Creatinine 0.8 (0.6-1.0) mg/dL Est Cr Clr Drug Dosing 71.14 mL/min Estimated GFR (MDRD) > 60.0 ml/min Glucose 86 (74-106) mg/dL Calcium 9.3 (8.5-10.1) mg/dL Total Bilirubin 0.3 (0.2-1.0) mg/dL AST 26 (15-37) IU/L ALT 33 (14-63) IU/L Alkaline Phosphatase 65 (46-116) U/L Total Protein 7.0 (6.4-8.2) g/dL Albumin 3.6 (3.4-5.0) g/dL Globulin 3.4 (2.6-4.0) g/dL Albumin/Globulin Ratio 1.1 (0.9-1.6) Urine Color YELLOW Urine Appearance CLEAR Urine pH 6.0 (5.0-8.0) Ur Specific [place] <= 1.005 (1.001-1.035) Urine Protein NEGATIVE (NEGATIVE) mg/dL Urine Glucose (UA) NEGATIVE (NEGATIVE) mg/dL Urine Ketones NEGATIVE (NEGATIVE) mg/dL Urine Occult Blood MODERATE H (NEGATIVE) Urine Nitrite NEGATIVE (NEGATIVE) Urine Bilirubin NEGATIVE (NEGATIVE) Urine Urobilinogen 0.2 (<2.0) EU/dL Ur Leukocyte Esterase NEGATIVE (NEGATIVE) Urine RBC 0-2 (0-2/HPF) Urine WBC 0-1 (0-5/HPF) Ur Epithelial Cells RARE (NONE-FEW) Urine Bacteria RARE (NEGATIVE) Meds: Medications Generic Name Dose Route Start Last Admin Trade Name Freq PRN Reason Stop Dose Admin Sodium Chloride 1,000 mls @ 999 mls/hr 06/06/18 16:27 06/06/18 17:15 Normal Saline IV 06/06/18 17:27 999 mls/hr STAT ONE Administration Discontinued Medications Generic Name Dose Route Start Last Admin Trade Name Freq PRN Reason Stop Dose Admin Ketorolac Tromethamine 30 mg 06/06/18 16:27 06/06/18 17:15 Toradol IVPUSH 06/06/18 16:28 30 mg ONETIME ONE Administration Promethazine HCl 25 mg 06/06/18 16:27 06/06/18 17:16 Phenergan PO 06/06/18 16:28 25 mg NOW STA Administration Departure - Departure Time of Disposition: 17:04 Disposition: Home, Self-Care 01 Clinical Impression: Viral illness - Discharge Information Referrals: PCP,Unknown [Primary Care Provider] - Forms: ED Department Discharge Additional Instructions: The following information is given to patients seen in the emergency department who are being discharged to home. This information is to outline your options for follow-up care. We provide all patients seen in our emergency department with a follow-up referral. The need for follow-up, as well as the timing and circumstances, are variable depending upon the specifics of your emergency department visit. If you don't have a primary care physician on staff, we will provide you with a referral. We always advise you to contact your personal physician following an emergency department visit to inform them of the circumstance of the visit and for follow-up with them and/or the need for any referrals to a consulting specialist. The emergency department will also refer you to a specialist when appropriate. This referral assures that you have the opportunity for follow-up care with a specialist. All of these measure are taken in an effort to provide you with optimal care, which includes your follow-up. Under all circumstances we always encourage you to contact your private physician who remains a resource for coordinating your care. When calling for follow-up care, please make the office aware that this follow-up is from your recent emergency room visit. If for any reason you are refused follow-up, please contact the [facility] Emergency Department at and asked to speak to the emergency department charge nurse. [facility] [address] [place], [place] [id number] [place] [address] 1. You can alternate ibuprofen and Tylenol as needed for pain and discomfort as directed. Encourage you to sleep 6-8 hours per night. 2. Follow-up with a primary care provider as discussed. 3. Return to the ED as needed and as discussed. - My Orders Last 24 Hours: My Active Orders 06/06/18 15:40 CULTURE STREP A CONFIRMATION [RM] Stat STREP SCRN A RAPID W CULT CONF [] Stat 06/06/18 16:27 Sodium Chloride 0.9% [Normal Saline] 1,000 ml IV STAT - Assessment/Plan Last 24 Hours: My Active Orders 06/06/18 15:40 CULTURE STREP A CONFIRMATION [RM] Stat STREP SCRN A RAPID W CULT CONF [] Stat 06/06/18 16:27 Sodium Chloride 0.9% [Normal Saline] 1,000 ml IV STAT
[2018-06-06] MEDS ORDERED: Sodium Chloride 0.9% 1,000 ML IV ONE (16:27)
[2018-06-06] MEDS ORDERED: Ketorolac 30 MG/ML SDV IVPUSH ONE (16:27)
[2018-06-06] MEDS ORDERED: Promethazine 25 MG Tab PO STA (16:27)
[2018-06-06 17:07] LABS: CHLORIDE,CL 107 mmol/L (98-107); SODIUM,NA 142 mmol/L (136-145)
[2018-06-06 18:08] VITALS: BP 150/87
== END 2018-06-06 18:05 | disposition home or self-care (01) ==
LOC: MW.ED 14:41
DX: B34.9 Viral infection, unspecified (principal); Z88.6 Allergy status to analgesic agent; Z88.8 Allergy status to other drugs, medicaments and biological substances; Z79.899 Other long term (current) drug therapy
CPT/HCPCS: 36415; 80053; 81001; 85025; 87081; 87804; 87880; 96361; 96374; 99284; A9270; J1885; J7040; 99283

== ENCOUNTER 2020-07-05 13:46 | Emergency (ER) | payer OTHER, MEDICAID ==
[2020-07-05] MEDS ORDERED: Morphine 4 MG/ML Syringe IVPUSH ONE (14:00)
[2020-07-05] MEDS ORDERED: Ketorolac 30 MG/ML SDV IVPUSH ONE (14:00)
[2020-07-05 14:19] LABS: BLOOD UREA NITROGEN,BUN 20 mg/dL (7.0-18.0); CARBON DIOXIDE,CO2 23.2 mmol/L (21.0-32.0); CHLORIDE,CL 103 mmol/L (98-107); GLUCOSE RANDOM 92 mg/dL (74-106); LIPASE 212 U/L (73-393); POTASSIUM,K 3.7 mmol/L (3.5-5.1); SODIUM,NA 139 mmol/L (136-145)
[2020-07-05 15:15] LABS: CORONAVIRUS COVID-19 NAA NEGATIVE (NEGATIVE); INFLUENZA A NAA NEGATIVE (NEGATIVE); INFLUENZA B NAA NEGATIVE (NEGATIVE)
--- NOTE | 2020-07-05 16:28 | CT ---
INDICATION: Right lower quadrant abdomen and flank pain. TECHNIQUE: CT abdomen and pelvis acquired without and with 100 cc Isovue 370 IV contrast. COMPARISON: None. FINDINGS: Lower chest: Unremarkable. Liver: Unremarkable. Normal in size and attenuation. No masses. Gallbladder and bile ducts: Status post cholecystectomy. No biliary dilatation. Pancreas: Unremarkable. No mass or inflammation. Spleen: Unremarkable. Normal in size. No masses. Adrenal glands: Unremarkable. No nodules. Kidneys: Unremarkable. No suspicious masses, stones, or hydronephrosis. GI tract: There is a mobile cecum which is present in the left mid abdomen. There is a narrowed segment of proximal ascending colon. GI tract otherwise within normal limits in caliber and appearance. No sign of mass or acute inflammation. Appendix is not seen. No signs of appendicitis. Vasculature: Unremarkable. Mesenteric arteries are patent. Lymph nodes: No lymphadenopathy. Omentum/Peritoneum/Abdominal Wall: Unremarkable. No sign of mass or infiltration. No free air or significant free fluid. Pelvis: Unremarkable. Bones: Unremarkable for age. IMPRESSION: 1. Mobile cecum which is positioned in the left central abdomen. There is a narrowed segment of ascending colon. This is not necessarily pathological and could represent normal peristalsis. Colitis or neoplasm in this narrowed segment is unlikely but not excluded. Follow-up evaluation with colonoscopy or CT may be considered. 2. Remainder of the exam is unremarkable. No other finding to explain right abdomen or flank pain. Specifically no renal stones and no hydronephrosis. Please note that all CT scans at this facility use dose modulation, iterative reconstruction, and/or weight-based dosing when appropriate to reduce radiation dose to as low as reasonably achievable. Dictated by Nakul Tomlinson MD @ 07/05/2020 4:27:[address] Nakul Tomlinson @ Jul 05 2020 4:27PM
--- NOTE | 2020-07-05 17:00 | EDM.PDOC ---
ED HPI GENERAL MEDICAL PROBLEM - General Chief Complaint: Abdominal Pain Stated Complaint: ABDOMINAL PAIN Time Seen by Provider: 07/05/20 13:55 Source of Information: Reports: Patient History Limitations: Reports: No Limitations - History of Present Illness INITIAL COMMENTS - FREE TEXT/NARRATIVE: HISTORY AND PHYSICAL: History of present illness: Patient is a 49-year-old female who presents to the ED today with concern of right lower quadrant pain that has been ongoing over the past several days but has worsened today. Patient states that initially the pain was periumbilical and has now localized to the right lower quadrant. Patient states that she has felt nauseous today but states that she has not vomited. Patient states that she has a history of cholecystectomy but denies any other health history or any other abdominal surgeries. Patient states that she has not taken anything for her symptoms. Patient denies any other symptoms or concerns. Patient denies fever, chills, chest pain, shortness of breath, or cough. Denies headache, neck stiff ness, change in vision, syncope, or near syncope. Denies vomiting, diarrhea, constipation, or dysuria. Has not noted any blood in urine or stool. Patient has been eating and drinking appropriately prior to onset of symptoms. Review of systems: As per history of present illness and below otherwise all systems reviewed and negative. Past medical history: As per history of present illness and as reviewed below otherwise noncontributory. Surgical history: As per history of present illness and as reviewed below otherwise noncontributory. Social history: See social history for further information Family history: As per history of present illness and as reviewed below otherwise noncontributory. Physical exam: General: Patient is alert, oriented, and is holding her abdomen in the right lower quadrant periodically yelling with shifting movements. Vitals stable and reviewed by me HEENT: Atraumatic, normocephalic, pupils equal and reactive bilaterally, negative for conjunctival pallor or scleral icterus, mucous membranes moist, TMs normal bilaterally, throat clear, neck supple, nontender, trachea midline. No drooling or trismus noted. No meningeal signs. No hot potato voice noted. Lungs: Clear to auscultation, breath sounds equal bilaterally, chest nontender. Heart: S1S2, regular rate and rhythm without overt murmur Abdomen: Exam of abdomen is limited due to pain. However, soft, nondistended, severe right lower quadrant tenderness, unable to assess rebound tenderness. Negative for masses or hepatosplenomegaly. Negative for costovertebral tenderness. Pelvis: Stable nontender. Genitourinary: Deferred. Rectal: Deferred. Skin: Intact, warm, dry. No lesions or rashes noted. Extremities: Atraumatic, negative for cords or calf pain. Neurovascular unremarkable. Neuro: Awake, alert, oriented. Cranial nerves II through XII unremarkable. Cerebellum unremarkable. Motor and sensory unremarkable throughout. Exam nonfocal. Notes: Upon arrival to the ED, patient does appear to have significant abdominal pain localized in the right lower quadrant initially it started periumbilically. Will obtain labwork and abd/pelvic CT scan with contrast. Lab work does show a white count of 12.44 on CBC. CMP does show mild increase of BUN at 20. Lipase is within normal limits. Urinalysis is positive for ketones (patient states she is on ketosis plan). Abdominal pelvic CT shows mobile cecum which is positioned in the left central abdomen. There is a narrowed segment of a sending colon. This is not necessarily pathological in color exam normal peristalsis. Remainder of exam is unremarkable. No other findings to explain right abdomen or flank pain. Appendix is not visualized but no signs of appendicitis. Upon reevaluation of patient, she states her pain is completely resolved and she is requesting to leave the ED. Discussed with patient that she does have mild elevation in her white blood cell counts and the appendix is not visualized on exam so unable to completely rule out appendicitis. Discussed consulting the general surgeon for possible admission for observation for routine abdominal exams but patient is requesting to leave the ED and would like her IV removed. All risks versus benefits discussed with patient and expresses understanding. Strict return precautions thoroughly discussed with patient. Discussed importance for follow-up with a general surgeon and her primary care provider. Voices understanding and is agreeable to plan of care. Denies any further ques tions or concerns at this time. Diagnostics: CBC, CMP, UA, lipase, urine hCG, abdominal pelvic CT scan with contrast Therapeutics: Toradol, morphine Prescription: None Impression: Abdominal pain, resolved Plan: 1. You can alternate ibuprofen and Tylenol as directed for pain and discomfort. 2. Follow-up with a primary care provider and the general surgeon as discussed. Return to the ED as needed and as discussed. Definitive disposition and diagnosis as appropriate pending reevaluation and review of above. RLQ Pain Score (Numeric/FACES): 8 - Related Data Allergies Allergy/AdvReac Type Severity Reaction Status Date / Time hydromorphone [From Dilaudid] Allergy Nausea and Verified 07/05/20 13:50 Vomiting ondansetron [From Zofran] Allergy Nausea and Verified 07/05/20 13:50 Vomiting Home Meds: Home Meds Methylphenidate HCl 20 mg PO BID 10/30/16 [History] Past Medical History - Past Health History Medical/Surgical History: Denies Medical/Surgical History HEENT History: Reports: Other (See Below) Other HEENT History: glasses for reading and driving Cardiovascular History: Reports: None Respiratory History: Reports: Other (See Below) Other Respiratory History: pleurisy rt lung Gastrointestinal History: Reports: Cholelithiasis Genitourinary History: Reports: UTI, Recurrent [employer] History: Reports: Musculoskeletal History: Reports: Back Pain, Chronic, Other (See Below) Other Musculoskeletal History: "slight" fx hip pain Neurological History: Reports: None Psychiatric History: Reports: ADHD, Anxiety, Bipolar, PTSD Endocrine/Metabolic History: Reports: None Hematologic History: Reports: None Immunologic History: Reports: None Oncologic (Cancer) History: Reports: Other (See Below) Other Oncologic History: abnormal pap Dermatologic History: Reports: None - Infectious Disease History Infectious Disease History: Reports: Chicken Pox, Other (See Below) Other Infectious Disease History: COVID 2019 - Past Surgical History Head Surgeries/Procedures: Reports: None HEENT Surgical History: Reports: Tonsillectomy Cardiovascular Surgical History: Reports: None Respiratory Surgical History: Reports: None GI Surgical History: Reports: Cholecystectomy Female Surgical History: Reports: Tubal Ligation Other Female Surgeries/Procedures: colposcopy for abnormal pap Endocrine Surgical History: Reports: None Neurological Surgical History: Reports: None Musculoskeletal Surgical History: Reports: None Oncologic Surgical History: Reports: None Dermatological Surgical History: Reports: None Social & Family History - Family History Family Medical History: No Pertinent Family History - Tobacco Use Tobacco Use Status *Q: Current Every Day Tobacco User Years of Tobacco use: 35 Packs/Tins Daily: 0.5 - Caffeine Use Caffeine Use: Reports: Coffee - Recreational Drug Use Recreational Drug Use: No ED ROS GENERAL - Review of Systems Review Of Systems: Comprehensive ROS is negative, except as noted in HPI. ED EXAM, GENERAL - Physical Exam Exam: See Below (See dictation) Course - Vital Signs Last Recorded V/S: Last Vital Signs Temp 97.3 F 07/05/20 13:51 Pulse 80 07/05/20 17:10 Resp 17 07/05/20 17:10 BP 117/8 L 07/05/20 17:10 Pulse Ox 100 07/05/20 17:10 - Orders/Labs/Meds Labs: Laboratory Tests 07/05/20 07/05/20 07/05/20 Range/Units 13:56 13:56 13:56 WBC 12.44 H (4.0-11.0) K/uL RBC 4.80 (4.30-5.90) M/uL Hgb 15.0 (12.0-16.0) g/dL Hct 42.9 (36.0-46.0) % MCV 89.4 (80.0-98.0) fL MCH 31.3 (27.0-32.0) pg MCHC 35.0 (31.0-37.0) g/dL RDW Std Deviation 44.9 (28.0-62.0) fl RDW Coeff of Diana 14 (11.0-15.0) % Plt Count 338 (150-400) K/uL MPV 10.70 (7.40-12.00) fL Neut % (Auto) 52.4 (48.0-80.0) % Lymph % (Auto) 40.8 H (16.0-40.0) % Dubois % (Auto) 5.4 (0.0-15.0) % Eos % (Auto) 1.0 (0.0-7.0) % Baso % (Auto) 0.4 (0.0-1.5) % Neut # (Auto) 6.5 H (1.4-5.7) K/uL Lymph # (Auto) 5.1 H (0.6-2.4) K/uL Dubois # (Auto) 0.7 (0.0-0.8) K/uL Eos # (Auto) 0.1 (0.0-0.7) K/uL Baso # (Auto) 0.1 (0.0-0.1) K/uL Nucleated RBC % 0.0 /100WBC Nucleated RBCs # 0 K/uL Sodium 139 (136-145) mmol/L Potassium 3.7 (3.5-5.1) mmol/L Chloride 103 (98-107) mmol/L Carbon Dioxide 23.2 (21.0-32.0) mmol/L BUN 20 H (7.0-18.0) mg/dL Creatinine 0.9 (0.6-1.0) mg/dL Est Cr Clr Drug Dosing 61.86 mL/min Estimated GFR (MDRD) > 60.0 ml/min Glucose 92 (74-106) mg/dL Calcium 9.0 (8.5-10.1) mg/dL Total Bilirubin 0.3 (0.2-1.0) mg/dL AST 22 (15-37) IU/L ALT 32 (14-63) IU/L Alkaline Phosphatase 88 (46-116) U/L Total Protein 8.2 (6.4-8.2) g/dL Albumin 4.2 (3.4-5.0) g/dL Globulin 4.0 (2.6-4.0) g/dL Albumin/Globulin Ratio 1.0 (0.9-1.6) Lipase 212 (73-393) U/L HCG, Qual NEGATIVE (NEG) Urine Color Urine Appearance Urine pH (5.0-8.0) Ur Specific [place] (1.001-1.035) Urine Protein (NEGATIVE) mg/dL Urine Glucose (UA) (NEGATIVE) mg/dL Urine Ketones (NEGATIVE) mg/dL Urine Occult Blood (NEGATIVE) Urine Nitrite (NEGATIVE) Urine Bilirubin (NEGATIVE) Urine Urobilinogen (<2.0) EU/dL Ur Leukocyte Esterase (NEGATIVE) Urine RBC (0-2/HPF) Urine WBC (0-5/HPF) Ur Epithelial Cells (NONE-FEW) Urine Bacteria (NEGATIVE) Influenza Type A RNA (NEGATIVE) Influenza Type B RNA (NEGATIVE) SARS-CoV-2 RNA (NIECY) (NEGATIVE) 07/05/20 07/05/20 Range/Units 14:24 15:15 WBC (4.0-11.0) K/uL RBC (4.30-5.90) M/uL Hgb (12.0-16.0) g/dL Hct (36.0-46.0) % MCV (80.0-98.0) fL MCH (27.0-32.0) pg MCHC (31.0-37.0) g/dL RDW Std Deviation (28.0-62.0) fl RDW Coeff of Diana (11.0-15.0) % Plt Count (150-400) K/uL MPV (7.40-12.00) fL Neut % (Auto) (48.0-80.0) % Lymph % (Auto) (16.0-40.0) % Dubois % (Auto) (0.0-15.0) % Eos % (Auto) (0.0-7.0) % Baso % (Auto) (0.0-1.5) % Neut # (Auto) (1.4-5.7) K/uL Lymph # (Auto) (0.6-2.4) K/uL Dubois # (Auto) (0.0-0.8) K/uL Eos # (Auto) (0.0-0.7) K/uL Baso # (Auto) (0.0-0.1) K/uL Nucleated RBC % /100WBC Nucleated RBCs # K/uL Sodium (136-145) mmol/L Potassium (3.5-5.1) mmol/L Chloride (98-107) mmol/L Carbon Dioxide (21.0-32.0) mmol/L BUN (7.0-18.0) mg/dL Creatinine (0.6-1.0) mg/dL Est Cr Clr Drug Dosing mL/min Estimated GFR (MDRD) ml/min Glucose (74-106) mg/dL Calcium (8.5-10.1) mg/dL Total Bilirubin (0.2-1.0) mg/dL AST (15-37) IU/L ALT (14-63) IU/L Alkaline Phosphatase (46-116) U/L Total Protein (6.4-8.2) g/dL Albumin (3.4-5.0) g/dL Globulin (2.6-4.0) g/dL Albumin/Globulin Ratio (0.9-1.6) Lipase (73-393) U/L HCG, Qual (NEG) Urine Color YELLOW Urine Appearance HAZY Urine pH 6.0 (5.0-8.0) Ur Specific [place] 1.020 (1.001-1.035) Urine Protein NEGATIVE (NEGATIVE) mg/dL Urine Glucose (UA) NEGATIVE (NEGATIVE) mg/dL Urine Ketones 15 H (NEGATIVE) mg/dL Urine Occult Blood LARGE H (NEGATIVE) Urine Nitrite NEGATIVE (NEGATIVE) Urine Bilirubin NEGATIVE (NEGATIVE) Urine Urobilinogen 0.2 (<2.0) EU/dL Ur Leukocyte Esterase NEGATIVE (NEGATIVE) Urine RBC 0-3 (0-2/HPF) Urine WBC 0-1 (0-5/HPF) Ur Epithelial Cells RARE (NONE-FEW) Urine Bacteria FEW (NEGATIVE) Influenza Type A RNA NEGATIVE (NEGATIVE) Influenza Type B RNA NEGATIVE (NEGATIVE) SARS-CoV-2 RNA (NIECY) NEGATIVE (NEGATIVE) Meds: Medications Discontinued Medications Generic Name Dose Route Start Last Admin Trade Name Demar PRN Reason Stop Dose Admin Iopamidol 100 ml 07/05/20 19:21 07/05/20 19:22 Iopamidol 755 Mg/Ml 500 Ml Multipack Bottle IVPUSH 07/05/20 19:22 100 ml ONETIME STA Administration Ketorolac Tromethamine 30 mg 07/05/20 14:00 07/05/20 14:07 Ketorolac 30 Mg/Ml Sdv IVPUSH 07/05/20 14:01 30 mg ONETIME ONE Administration Morphine Sulfate 4 mg 07/05/20 14:00 07/05/20 14:07 Morphine 4 Mg/Ml Syringe IVPUSH 07/05/20 14:01 4 mg ONETIME ONE Administration Departure - Departure Time of Disposition: 16:59 Disposition: Home, Self-Care 01 Clinical Impression: Abdominal pain Qualifiers: Abdominal location: right lower quadrant Qualified Code(s): R10.31 - Right lower quadrant pain - Discharge Information Instructions: Abdominal Pain, Adult, [id number] Referrals: PCP,None [Primary Care Provider] - Forms: ED Department Discharge Additional Instructions: The following information is given to patients seen in the emergency department who are being discharged to home. This information is to outline your options for follow-up care. We provide all patients seen in our emergency department with a follow-up referral. The need for follow-up, as well as the timing and circumstances, are variable depending upon the specifics of your emergency department visit. If you don't have a primary care physician on staff, we will provide you with a referral. We always advise you to contact your personal physician following an emergency department visit to inform them of the circumstance of the visit and for follow-up with them and/or the need for any referrals to a consulting specialist. The emergency department will also refer you to a specialist when appropriate. This referral assures that you have the opportunity for follow-up care with a specialist. All of these measure are taken in an effort to provide you with optimal care, which includes your follow-up. Under all circumstances we always encourage you to contact your private physician who remains a resource for coordinating your care. When calling for follow-up care, please make the office aware that this follow-up is from your recent emergency room visit. If for any reason you are refused follow-up, please contact the [facility] Emergency Department at and asked to speak to the emergency department charge nurse. [facility] [address] [place] [address] [place] [address] [facility] Special[facility] - General Surgery Professional Building [address] [place] [address], [address] [place] [address] 1. You can alternate ibuprofen and Tylenol as directed for pain and discomfort. 2. Follow-up with a primary care provider and the general surgeon as discussed. Return to the ED as needed and as discussed. Sepsis Event Note (ED) - Evaluation Sepsis Screening Result: No Definite Risk - Focused Exam Vital Signs: Vital Signs Temp Pulse Resp BP Pulse Ox 07/05/20 17:10 80 17 117/8 L 100 07/05/20 13:51 97.3 F 94 20 164/107 H 97
[2020-07-05 17:29] VITALS: BP 117/8; PULSE 80
[2020-07-05] MEDS ORDERED: Iopamidol 755 MG/ML 500 ML Multipack Bottle IVPUSH STA (19:21)
== END 2020-07-05 17:10 | disposition home or self-care (01) ==
LOC: MW.ED 13:46
DX: R10.31 Right lower quadrant pain (principal); R11.0 Nausea; Z88.5 Allergy status to narcotic agent; Z88.8 Allergy status to other drugs, medicaments and biological substances; Z72.0 Tobacco use; Z20.822 Contact with and (suspected) exposure to COVID-19
CPT/HCPCS: 0240U; 36415; 74178; 80053; 81001; 83690; 84703; 85025; 96374; 96375; 99284; J1885; J2270; Q9967; 99283

== ENCOUNTER 2024-06-25 09:28 | Emergency (ER) | payer OTHER ==
[2024-06-25 09:43] LABS: BASOPHILS ABSOLUTE AUTO 0.07 K/uL (0.00-0.20); BASOPHILS PERCENT AUTO 0.6 % (0.0-1.0); EOSINOPHILS ABSOLUTE AUTO 0.02 K/uL (0.00-0.45); EOSINOPHILS PERCENT AUTO 0.2 % (0.0-6.0); HEMATOCRIT 41.9 % (37.0-47.0); HEMOGLOBIN 14.5 g/dL (12.0-16.0); IMMATURE GRAN ABSOLUTE AUTO 0.03 K/uL (0.00-0.05); IMMATURE GRAN PERCENT AUTO 0.3 % (0.0-0.4); LYMPHOCYTES ABSOLUTE AUTO 2.98 K/uL (1.00-4.80); MEAN CORPUSCULAR HEMOGLOBIN 30.9 pg (28.0-32.0); MEAN CORPUSCULAR HGB CONC 34.6 g/dL (32.0-36.0); MEAN CORPUSCULAR VOLUME 89.3 fL (83.0-99.0); MEAN PLATELET VOLUME 9.8 fL (9.4-12.3); MONOCYTES PERCENT AUTO 4.4 % (0.0-8.0); NEUTROPHILS ABSOLUTE AUTO 7.86 K/uL (1.80-7.70); NEUTROPHILS PERCENT AUTO 68.5 % (41.0-71.0); PLATELET COUNT,PLT 306 K/uL (150-400); RED BLOOD CELL COUNT 4.69 M/uL (4.10-5.30); WHITE BLOOD CELL COUNT,WBC 11.46 K/uL (3.9-11.3)
[2024-06-25] MEDS: Pantoprazole 40 MG in Sodium Chloride 0.9% 10 ML IVPUSH ONE (10:04)
[2024-06-25] MEDS: droPERidol 2.5 MG/ML SDV IVPUSH ONE (10:04)
[2024-06-25 10:08] LABS: A/G RATIO 1.3 (0.9-1.6); ALBUMIN 4.4 g/dL (3.4-5.0); BILIRUBIN TOTAL 0.4 mg/dL (0.2-1.0); CALCIUM 9.5 mg/dL (8.5-10.1); CARBON DIOXIDE,CO2 28.2 mmol/L (21.0-32.0); CREATININE 0.8 mg/dL (0.6-1.0); EST CRCL DRUG DOSING (CG) 66.5 mL/min; POTASSIUM,K 4.1 mmol/L (3.5-5.1); PROTEIN TOTAL,TP 7.8 g/dL (6.4-8.2)
[2024-06-25] MEDS: Sodium Chloride 0.9% 1,000 ML IV ONE (10:28)
[2024-06-25 11:34] LABS: APPEARANCE,URINE CLEAR; BILIRUBIN,URINE NEGATIVE (NEGATIVE); COLOR,URINE YELLOW; GLUCOSE,URINE NEGATIVE (NEGATIVE); KETONES,URINE NEGATIVE (NEGATIVE); LEUKOCYTE ESTERASE,URINE NEGATIVE (NEGATIVE); NITRITE,URINE NEGATIVE (NEGATIVE); OCCULT BLOOD,URINE SMALL (NEGATIVE); PROTEIN,URINE NEGATIVE (NEGATIVE); UROBILINOGEN,URINE 0.2 EU/dL (<2.0)
[2024-06-25 11:42] LABS: BACTERIA,URINE FEW (NEGATIVE); MUCUS,URINE RARE (NONE-MOD); SQUAMOUS EPITHELIAL CELLS,UR OCCASIONAL
[2024-06-25 12:10] VITALS: BP 148/97; PULSE 60
== END 2024-06-25 12:12 | disposition home or self-care (01) ==
LOC: MW.ED 09:28
DX: K27.9 Peptic ulcer, site unspecified, unspecified as acute or chronic, without hemorrhage or perforation (principal); R19.5 Other fecal abnormalities; Z88.5 Allergy status to narcotic agent; Z88.8 Allergy status to other drugs, medicaments and biological substances; Z79.899 Other long term (current) drug therapy; Z90.49 Acquired absence of other specified parts of digestive tract
CPT/HCPCS: 36415; 80053; 81001; 83605; 83690; 85025; 93005; 96361; 96374; 96375; 99284; J1790; J2470; J7030; 93010

== ENCOUNTER 2024-09-17 08:23 | Day surgery (SDC) | payer OTHER ==
[~2024-09-17 08:23] MED LIST: Sodium Chloride 0.9% 10 ML Syringe FLUSH PRN; Sodium Chloride 0.9% 2.5 ML Syringe FLUSH PRN
[2024-09-17] MEDS: Lactated Ringers 1,000 ML IV SCH (08:49)
[2024-09-17] MEDS ORDERED: Propofol 200 MG/20 ML SDV ONE (10:01)
[2024-09-17 11:18] VITALS: BP 117/69; PULSE 58
== END 2024-09-17 11:15 | disposition home or self-care (01) ==
LOC: MW.SDS 08:23
PROVIDERS: ATTEND Surgery
DX: K29.50 Unspecified chronic gastritis without bleeding (principal); I10 Essential (primary) hypertension; F31.9 Bipolar disorder, unspecified; Z88.0 Allergy status to penicillin; Z88.6 Allergy status to analgesic agent; Z88.8 Allergy status to other drugs, medicaments and biological substances; Z79.899 Other long term (current) drug therapy
CPT/HCPCS: 43239; J2704; J7120; 00731

== ENCOUNTER 2024-12-19 13:56 | Emergency (ER) | payer OTHER ==
[2024-12-19 14:20] VITALS: BP 177/84; PULSE 85
== END 2024-12-19 15:15 | disposition home or self-care (01) ==
LOC: MW.ED 13:56
DX: S61.250A Open bite of right index finger without damage to nail, initial encounter (principal); S61.031A Puncture wound without foreign body of right thumb without damage to nail, initial encounter; E66.9 Obesity, unspecified; Z68.29 Body mass index [BMI] 29.0-29.9, adult; Z88.8 Allergy status to other drugs, medicaments and biological substances; Z79.899 Other long term (current) drug therapy; Z90.49 Acquired absence of other specified parts of digestive tract; W55.01XA Bitten by cat, initial encounter
CPT/HCPCS: 99283